=== PATIENT | female | born 1990 | race Caucasian/White ===

== ENCOUNTER 2019-01-09 20:32 | Emergency (ER) | payer OTHER ==
[~2019-01-09] VITALS: Ht 170.2 cm; Wt 95.3 kg
[2019-01-09 20:38] VITALS: Ht 170.2 cm; Wt 95.3 kg
[2019-01-09 22:03] VITALS: BP 133/78
== END 2019-01-09 22:03 | disposition home or self-care (01) ==
LOC: ED 20:32
DX: J45.901 Unspecified asthma with (acute) exacerbation (principal)
CPT/HCPCS: J7512; J7613; J7644